=== PATIENT | male | born 1945 | race Caucasian/White ===

== ENCOUNTER 2018-04-29 05:03 | Emergency (ER) | payer MEDICARE ==
[2018-04-29 05:29] LABS: BASOPHILS # (AUTO) 0.1 10^3/uL (0.0-0.1); BASOPHILS % (AUTO) 1.1 %; EOSINOPHILS # (AUTO) 0.3 10^3/uL (0.0-0.7); EOSINOPHILS % (AUTO) 3.4 %; HGB - HEMOGLOBIN 15.4 g/dL (14.0-18.0); LYMPHOCYTES # (AUTO) 2.2 10^3/uL (1.5-3.5); LYMPHOCYTES % (AUTO) 23.9 %; MEAN CORPUSCULAR HEMOGLOBIN 27.3 pg (27.0-31.0); MEAN CORPUSCULAR HGB CONC 32.7 g/dL (32.0-36.0); MEAN CORPUSCULAR VOLUME 83.6 fL (80.0-94.0); MEAN PLATELET VOLUME 7.8 fL (7.4-11.4); MONOCYTES # (AUTO) 0.7 10^3/uL (0.0-1.0); MONOCYTES % (AUTO) 8.2 %; NEUTROPHILS # (AUTO) 5.8 10^3/uL (1.5-6.6); NEUTROPHILS % (AUTO) 63.4 %; PLT - PLATELET COUNT 244 10^3/uL (130-450); RED BLOOD COUNT 5.63 10^6/uL (4.70-6.10); RED CELL DISTRIBUTION WIDTH 14.2 % (12.0-15.0); WHITE BLOOD COUNT 9.2 x10^3/uL (4.8-10.8)
[2018-04-29] MEDS ORDERED: METOPROLOL 5 MG/5 ML VIAL IVP STA ×3 (05:37→05:54)
[2018-04-29 05:41] LABS: ALBUMIN 4.2 g/dL (3.2-5.5); ALBUMIN/GLOBULIN RATIO 1.2 (1.0-2.2); BILIRUBIN,TOTAL 0.4 mg/dL (0.2-1.0); CALCIUM 9.4 mg/dL (8.5-10.3); CREATININE 0.9 mg/dL (0.6-1.2); TOTAL PROTEIN 7.6 g/dL (6.7-8.2)
[2018-04-29] MEDS ORDERED: SODIUM CHLORIDE 0.9% 1,000 ML IV ONE (05:53)
--- NOTE | 2018-04-29 06:05 | ED Physician Documentation ---
PD HPI CHEST PAIN - Stated complaint Stated Complaint: HIGH BLOOD PRESSURE, CHEST DISCOMFORT - Chief complaint Chief Complaint: Cardiac - History obtained from History obtained from: Patient, EMS - History of Present Illness Timing - onset: Today Timing - onset during: Rest Timing - duration: Hours Timing - details: Gradual onset, Still present Location: Substernal Radiation: Neck Improved by: Rest Associated symptoms: No: Shortness of air, Diaphoresis, Nausea, Vomiting, Feeling faint / dizzy, General Weakness, Palpitations, Cough Similar symptoms before: Diagnosis (hypertensive crisis) Recently seen: Not recently seen - Additional information Additional information: 72-year-old male with a history of hypertension and atrial fibrillation awoke this morning with his fingers being cold and clammy. He checked his blood pressure was markedly elevated he has had this happen to him previously with marked elevation in his blood pressure. He is come to the emergency department now by ambulance. With a diastolic over 120. Review of Systems Constitutional: denies: Fever, Chills, Myalgias, Fatigue Eyes: denies: Decreased vision Ears: denies: Ear pain Nose: denies: Rhinorrhea / runny nose, Congestion Throat: denies: Sore throat Cardiac: denies: Chest pain / pressure, Palpitations Respiratory: denies: Dyspnea, Cough GI: denies: Abdominal Pain, Nausea, Vomiting : denies: Dysuria, Frequency Skin: denies: Rash Musculoskeletal: denies: Neck pain, Back pain, Extremity pain Neurologic: denies: Generalized weakness, Focal weakness, Numbness PD PAST MEDICAL HISTORY - Past Medical History Past Medical History: Yes Cardiovascular: Hypertension, Atrial fibrillation Musculoskeletal: Osteoarthritis, Chronic back pain - Past Surgical History Past Surgical History: Yes - Present Medications Home Medications: Ambulatory Orders Medication Instructions Recorded Confirmed Omeprazole Magnesium [Prilosec] 40 mg PO DAILY 04/29/18 04/29/18 RX: Acetaminophen 1 tab PO Q4HR PRN 04/29/18 04/29/18 RX: Gabapentin 600 mg PO TID 04/29/18 04/29/18 RX: Lisinopril 1 tab PO BID 04/29/18 04/29/18 RX: Metoprolol Tartrate 25 mg PO BID 04/29/18 04/29/18 RX: Nortriptyline HCl 50 mg PO QPM 04/29/18 04/29/18 RX: Oxycodone HCl 10 mg PO Q3HR PRN 04/29/18 04/29/18 RX: Promethazine [Phenergan] 1 tab PO Q4HR PRN 04/29/18 04/29/18 RX: Trazodone HCl 1 tab PO QPM PRN 04/29/18 04/29/18 RX: tiZANidine [Zanaflex] 0.5 tab PO DAILY PRN 04/29/18 04/29/18 Rivaroxaban [Xarelto] 1 tab PO DAILY 04/29/18 04/29/18 - Allergies Allergies/Adverse Reactions: Allergies Allergy/AdvReac Type Severity Reaction Status Date / Time Iodine and Iodide Containing Allergy Anaphylaxis Verified 04/29/18 06:14 Produc - Social History Does the pt smoke?: No Smoking Status: Never smoker Does the pt drink ETOH?: No Does the pt have substance abuse?: No - Immunizations Immunizations are current?: No - POLST Patient has POLST: No PD ED PE NORMAL - Vitals Vital signs reviewed: Yes (marked hypertension) - General General: Alert and oriented X 3, No acute distress, Well developed/nourished - HEENT HEENT: Atraumatic, PERRL, EOMI, Ears normal, Pharynx benign, Other (dry mucous membranes ) - Neck Neck: Supple, no meningeal sign, No bony TTP - Cardiac Cardiac: No murmur, Other (irregularly irregular ) - Respiratory Respiratory: No respiratory distress, Clear bilaterally - Abdomen Abdomen: Soft, Non tender - Back Back: No CVA TTP, No spinal TTP - Derm Derm: Normal color, Warm and dry, No rash - Extremities Extremities: No deformity, No edema - Neuro Neuro: Alert and oriented X 3, 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, No motor deficit, No sensory deficit, Normal speech Eye Opening: Spontaneous Motor: Obeys Commands Verbal: Oriented GCS Score: 15 - Psych Psych: Normal mood, Normal affect Results - Vitals Vitals: Vital Signs - 24 hr 04/29/18 04/29/18 04/29/18 05:03 05:30 05:58 Temperature 36.0 C L Heart Rate 99 86 90 Respiratory 22 18 23 Rate Blood Pressure 189/137 H 174/124 H 173/122 H Blood Pressure 175/118 H [Left] Blood Pressure 172/124 H [Right] O2 Saturation 96 98 95 1204/29/18 04/29/18 06:02 06:10 06:20 Temperature Heart Rate 82 79 79 Respiratory 15 16 16 Rate Blood Pressure 171/160 H 175/118 H 177/133 H Blood Pressure [Left] Blood Pressure [Right] O2 Saturation 95 96 94 04/29/18 04/29/18 04/29/18 06:33 06:43 06:55 Temperature Heart Rate 76 69 71 Respiratory 24 16 14 Rate Blood Pressure 176/104 H 151/118 H 177/116 H Blood Pressure [Left] Blood Pressure [Right] O2 Saturation 100 97 97 Oxygen O2 Source Room air - EKG (time done) 0510 Rate: No: Rate (enter#) (88) Rhythm: Atrial fibrillation Ischemia: Normal ST segments Compare to prior EKG: Old EKG unavailable Computer interpretation: Agree with computer - Labs Labs: Laboratory Tests 04/29/18 04/29/18 04/29/18 05:23 05:23 05:23 WBC 9.2 RBC 5.63 Hgb 15.4 Hct 47.1 MCV 83.6 MCH 27.3 MCHC 32.7 RDW 14.2 Plt Count 244 MPV 7.8 Neut # (Auto) 5.8 Lymph # (Auto) 2.2 [place] # (Auto) 0.7 Eos # (Auto) 0.3 Baso # (Auto) 0.1 Absolute Nucleated RBC 0.00 Nucleated RBC % 0.1 Sodium 138 Potassium 3.7 Chloride 98 L Carbon Dioxide 31 Anion Gap 9.0 BUN 17 Creatinine 0.9 Estimated GFR (MDRD) 82 L Glucose 154 H Calcium 9.4 Total Bilirubin 0.4 AST 24 ALT 21 Alkaline Phosphatase 78 Troponin I < 0.04 Total Protein 7.6 Albumin 4.2 Globulin 3.4 Albumin/Globulin Ratio 1.2 Lipase 34 Procedures - IVC sono (time) 0530 Bedside IVC sono: IVC measures (cm) (0.89), IVC collapsed c insp (cm) (complete), Dehydration (est 2 liter deficit) PD MEDICAL DECISION MAKING - ED course Complexity details: reviewed results, re-evaluated patient, considered differential, d/w patient ED course: 72 y/o male with a hypertensive crisis denies missing a dose of his metoprolol and denies any excessive salt load. He is found to be dehydrated on interrogation of the IVC and he is administered IV saline and metoprolol. He is then administered clonidine 0.2mg and he has some improvement. The patient has urgent hypertension and we will increase his metoprolol to 50mg bid and have him follow up this week with a new primary. Departure - Departure Disposition: 01 Home, Self Care Clinical Impression: Hypertensive urgency, malignant Condition: Stable Instructions: ED Hypertension Conf Out Of Control Follow-[facility]Provider Group[facility] Comments: Today you have hypertensive urgency and it is recommended that we lower your blood pressure over the next week. We have given you some medication today to lower your blood pressure today. Increase your dose of metoprolol to 50 mg twice per day and start that today. Expect some improvement in your blood pressure daily and follow-up with the primary care doctors this week. Discharge Date/Time: 04/29/18 07:42
[2018-04-29] MEDS ORDERED: cloNIDine 0.1 MG TABLET PO STA ×2 (06:22→06:26)
--- NOTE | 2018-04-29 06:37 | XRAY Report ---
Reason: chest pain Procedure Date: 04/29/2018 Accession Number: [id number] / [id number] Procedure: XR - Chest 1 View X-Ray CPT Code: 46079 FULL RESULT: EXAM: CHEST RADIOGRAPHY EXAM DATE: 04/29/2018 06:24 AM. CLINICAL HISTORY: Chest pain. COMPARISON: None. TECHNIQUE: 1 view. FINDINGS: Lungs/Pleura: No focal opacities evident. No pleural effusion. No pneumothorax. Mediastinum: Within exam limitations, the cardiomediastinal contour is normal. Other: Right hemidiaphragm elevation. IMPRESSION: No acute process seen in the chest. RADIA
[2018-04-29 06:56] VITALS: BP 177/116
== END 2018-04-29 07:42 | disposition home or self-care (01) ==
LOC: EDBD → ED 05:03
DX: I16.0 Hypertensive urgency (principal); E86.0 Dehydration; I10 Essential (primary) hypertension; I48.91 Unspecified atrial fibrillation; Z79.01 Long term (current) use of anticoagulants
CPT/HCPCS: 36415; 71045; 80053; 83690; 84484; 85025; 93005; 96361; 96374; 96376; 99284; 99285; A9270

== ENCOUNTER 2018-05-02 14:03 | Emergency (ER) | payer MEDICARE ==
[2018-05-02 14:40] LABS: BASOPHILS # (AUTO) 0.1 10^3/uL (0.0-0.1); BASOPHILS % (AUTO) 0.9 %; EOSINOPHILS # (AUTO) 0.1 10^3/uL (0.0-0.7); HGB - HEMOGLOBIN 16.4 g/dL (14.0-18.0); LYMPHOCYTES # (AUTO) 1.9 10^3/uL (1.5-3.5); LYMPHOCYTES % (AUTO) 16.9 %; MEAN CORPUSCULAR HEMOGLOBIN 27.3 pg (27.0-31.0); MEAN CORPUSCULAR HGB CONC 32.9 g/dL (32.0-36.0); MEAN CORPUSCULAR VOLUME 82.9 fL (80.0-94.0); MEAN PLATELET VOLUME 8.2 fL (7.4-11.4); MONOCYTES # (AUTO) 0.9 10^3/uL (0.0-1.0); MONOCYTES % (AUTO) 8.2 %; NEUTROPHILS # (AUTO) 8.1 10^3/uL (1.5-6.6); PLT - PLATELET COUNT 291 10^3/uL (130-450); RED BLOOD COUNT 6.02 10^6/uL (4.70-6.10); RED CELL DISTRIBUTION WIDTH 14.2 % (12.0-15.0); WHITE BLOOD COUNT 11.1 x10^3/uL (4.8-10.8)
[2018-05-02 14:53] LABS: ALBUMIN 4.9 g/dL (3.2-5.5); ALBUMIN/GLOBULIN RATIO 1.3 (1.0-2.2); BILIRUBIN,TOTAL 0.7 mg/dL (0.2-1.0); CALCIUM 9.8 mg/dL (8.5-10.3); CREATININE 0.9 mg/dL (0.6-1.2); TOTAL PROTEIN 8.7 g/dL (6.7-8.2)
[2018-05-02] MEDS ORDERED: SODIUM CHLORIDE 0.9% 500 ML IV ONE (14:58)
[2018-05-02 16:12] LABS: BILIRUBIN,URINE NEGATIVE (NEGATIVE); GLUCOSE, URINE (UA) NEGATIVE (NEGATIVE); KETONES,URINE (UA) NEGATIVE (NEGATIVE); LEUKOCYTE ESTERASE, URINE TRACE (NEGATIVE); NITRITE,URINE NEGATIVE (NEGATIVE); OCCULT BLOOD,URINE LARGE (NEGATIVE); PROTEIN,URINE 30 mg/dL (NEGATIVE); UROBILINOGEN,URINE 0.2 (NORMAL) E.U./dL (NORMAL)
[2018-05-02 16:14] LABS: CLARITY,URINE CLOUDY (CLEAR)
[2018-05-02 16:18] LABS: BACTERIA,URINE None Seen /HPF (None Seen); RBC,URINE TNTC /HPF (0-5); SQUAMOUS EPITHELIAL CELL,UR NONE SEEN (<= Few)
--- NOTE | 2018-05-02 16:50 | ED Physician Documentation ---
PD HPI MALE - Stated complaint Stated Complaint: MALE - Chief complaint Chief Complaint: Abd Pain - History obtained from History obtained from: Patient, Family - History of Present Illness Timing - onset: Today (3) Timing - duration: Days (3) Timing - details: Gradual onset Pain level max: 5 Pain level now: 4 Associated symptoms: Hematuria, Abdominal pain (Patient states he has chronic left-sided abdominal pain for the past year and a half. No change). No: Dysuria, Urinary frequency, Unable to urinate, Discharge, Genital sore / lesion, Testiclar pain, Scrotal swelling, Indwelling catheter, Herrera problem Similar symptoms before: Has not had sx before Recently seen: Not recently seen - Additional information Additional information: pt on xarelto Review of Systems Constitutional: denies: Fever, Chills Ears: denies: Ear pain Nose: denies: Rhinorrhea / runny nose, Congestion Throat: denies: Sore throat Cardiac: denies: Chest pain / pressure Respiratory: denies: Cough Skin: denies: Rash Musculoskeletal: denies: Neck pain, Back pain Neurologic: denies: Headache PD PAST MEDICAL HISTORY - Past Medical History Cardiovascular: Hypertension, Atrial fibrillation GI: GERD Musculoskeletal: Osteoarthritis, Chronic back pain - Past Surgical History Past Surgical History: Yes - Present Medications Home Medications: Ambulatory Orders Medication Instructions Recorded Confirmed Acetaminophen 1 tab PO Q4HR PRN 04/29/18 04/29/18 Gabapentin 600 mg PO TID 04/29/18 04/29/18 Lisinopril 1 tab PO BID 04/29/18 04/29/18 Metoprolol Tartrate 25 mg PO BID 04/29/18 04/29/18 Nortriptyline HCl 50 mg PO QPM 04/29/18 04/29/18 Omeprazole Magnesium [Prilosec] 40 mg PO DAILY 04/29/18 04/29/18 Oxycodone HCl 10 mg PO Q3HR PRN 04/29/18 04/29/18 Rivaroxaban [Xarelto] 1 tab PO DAILY 04/29/18 04/29/18 Trazodone HCl 1 tab PO QPM PRN 04/29/18 04/29/18 tiZANidine [Zanaflex] 0.5 tab PO DAILY PRN 04/29/18 04/29/18 - Allergies Allergies/Adverse Reactions: Allergies Allergy/AdvReac Type Severity Reaction Status Date / Time Iodine and Iodide Containing Allergy Anaphylaxis Verified 05/02/18 14:09 Produc - Social History Does the pt smoke?: No Smoking Status: Never smoker Does the pt drink ETOH?: No Does the pt have substance abuse?: No - Immunizations Immunizations are current?: No - POLST Patient has POLST: No PD ED PE NORMAL - Vitals Vital signs reviewed: Yes - General General: Alert and oriented X 3, No acute distress - HEENT HEENT: Moist mucous membranes - Neck Neck: Supple, no meningeal sign - Cardiac Cardiac: RRR, Strong equal pulses - Respiratory Respiratory: No respiratory distress, Clear bilaterally - Abdomen Abdomen: Soft, Non tender, Non distended - Back Back: No CVA TTP, No spinal TTP - Derm Derm: Warm and dry - Extremities Extremities: No edema - Neuro Neuro: Alert and oriented X 3 Results - Vitals Vitals: Vital Signs - 24 hr 05/02/18 05/02/18 14:05 17:24 Temperature 36.9 C 36.9 C Heart Rate 91 92 Respiratory 16 16 Rate Blood Pressure 172/113 H 169/110 H O2 Saturation 100 100 Oxygen O2 Source Room air - Labs Labs: Laboratory Tests 05/02/18 05/02/18 05/02/18 14:25 14:25 14:25 WBC 11.1 H RBC 6.02 Hgb 16.4 Hct 49.9 MCV 82.9 MCH 27.3 MCHC 32.9 RDW 14.2 Plt Count 291 MPV 8.2 Neut # (Auto) 8.1 H Lymph # (Auto) 1.9 [place] # (Auto) 0.9 Eos # (Auto) 0.1 Baso # (Auto) 0.1 Absolute Nucleated RBC 0.00 Nucleated RBC % 0.0 Sodium 141 Potassium 3.9 Chloride 100 L Carbon Dioxide 31 Anion Gap 10.0 BUN 14 Creatinine 0.9 Estimated GFR (MDRD) 82 L Glucose 119 H Calcium 9.8 Total Bilirubin 0.7 AST 34 ALT 24 Alkaline Phosphatase 78 Total Creatine Kinase 343 H Total Protein 8.7 H Albumin 4.9 Globulin 3.8 Albumin/Globulin Ratio 1.3 Lipase 38 Urine Color Urine Clarity Urine pH Ur Specific [place] Urine Protein Urine Glucose (UA) Urine Ketones Urine Occult Blood Urine Nitrite Urine Bilirubin Urine Urobilinogen Ur Leukocyte Esterase Urine RBC Urine WBC Ur Squamous Epith Cells Urine Bacteria Ur Microscopic Review Urine Culture Comments 05/02/18 15:58 WBC RBC Hgb Hct MCV MCH MCHC RDW Plt Count MPV Neut # (Auto) Lymph # (Auto) [place] # (Auto) Eos # (Auto) Baso # (Auto) Absolute Nucleated RBC Nucleated RBC % Sodium Potassium Chloride Carbon Dioxide Anion Gap BUN Creatinine Estimated GFR (MDRD) Glucose Calcium Total Bilirubin AST ALT Alkaline Phosphatase Total Creatine Kinase Total Protein Albumin Globulin Albumin/Globulin Ratio Lipase Urine Color BROWN Urine Clarity CLOUDY Urine pH 7.0 Ur Specific [place] 1.025 Urine Protein 30 H Urine Glucose (UA) NEGATIVE Urine Ketones NEGATIVE Urine Occult Blood LARGE H Urine Nitrite NEGATIVE Urine Bilirubin NEGATIVE Urine Urobilinogen 0.2 (NORMAL) Ur Leukocyte Esterase TRACE H Urine RBC TNTC H Urine WBC 0-3 Ur Squamous Epith Cells NONE SEEN Urine Bacteria None Seen Ur Microscopic Review INDICATED Urine Culture Comments INDICATED PD MEDICAL DECISION MAKING - ED course Complexity details: considered differential, d/w patient, d/w family ED course: Patient is a 72-year-old male with painless hematuria today. He is on Xarelto and it may be a side effect from this. We will have him hold this for the next few days. No evidence of UTI. If he does not improve, would likely need a urology referral for cystoscopy or further imaging with his doctor. Patient and family counseled regarding signs and symptoms for which I believe and urgent re-evaluation would be necessary. Patient with good understanding of and agreement to plan and is comfortable going home at this time This document was made in part using voice recognition software. While efforts are made to proofread this document, sound alike and grammatical errors may occur. Departure - Departure Disposition: 01 Home, Self Care Clinical Impression: Hematuria Qualifiers: Hematuria type: gross Qualified Code(s): R31.0 - Gross hematuria Condition: Good Instructions: ED Hematuria Follow-Up: your,doctor in 4 days for recheck [Other] Comments: Hold your xarelto for 3 days to see if this clears your urine. Follow up with your doctor for further care. Discharge Date/Time: 05/02/18 17:26
[2018-05-02 17:25] VITALS: BP 169/110
== END 2018-05-02 17:26 | disposition home or self-care (01) ==
LOC: ED 14:03
DX: R31.0 Gross hematuria (principal); I10 Essential (primary) hypertension; I48.91 Unspecified atrial fibrillation; Z79.01 Long term (current) use of anticoagulants
CPT/HCPCS: 36415; 80053; 81001; 81003; 82550; 83690; 85025; 87077; 87086; 87181; 96360; 99283

== ENCOUNTER 2018-07-05 12:58 | Outpatient (CLI) | payer MEDICARE ==
[2018-07-05] MEDS ORDERED: IOVERSOL 320 50 ML VIAL ONE (13:13)
[2018-07-05] MEDS ORDERED: IOVERSOL 320 100 ML VIAL IVP ONE (13:13)
[2018-07-05 13:29] LABS: CREATININE 0.9 mg/dL (0.6-1.2)
== END 2018-07-05 12:59 | disposition home or self-care (01) ==
LOC: DI 12:58
PROVIDERS: ATTEND Specialist
DX: R10.30 Lower abdominal pain, unspecified (principal)
CPT/HCPCS: 36415; 82565

== ENCOUNTER 2018-07-06 17:55 | Emergency (ER) | payer MEDICARE ==
[2018-07-06] MEDS ORDERED: IOVERSOL 320 100 ML VIAL IVP ONE ×3 (17:56→21:56)
[2018-07-06] MEDS ORDERED: diphenhydrAMINE INJ 50 MG/ML VIAL IVP STA (18:11)
--- NOTE | 2018-07-06 18:14 | ED Physician Documentation ---
PD HPI ABD PAIN - Stated complaint Stated Complaint: HBP/PURPLE FEET/BILAT NUMB/NOT EATING - History obtained from History obtained from: Patient, Family - History of Present Illness Timing - onset: Other (For the last few weeks he has had protuberant abdomen with abdominal pain and increasing abdominal girth associated with poor appetite and weight gain. He does not drink alcohol. Note made that he had painless hematuria on a visit in April, he has not had hematuria again since. He saw his primary care physician who ordered a CT but because of some confusion about whether or not he might be allergic to iodine it was not done yesterday. The reaction to iodine was in 1985 and was with a spinal injection, not IV contrast.) Review of Systems Ten Systems: 10 systems reviewed and negative Constitutional: reports: Fatigue. denies: Fever, Chills Cardiac: denies: Chest pain / pressure, Palpitations GI: reports: Abdominal Pain, Nausea. denies: Constipation, Diarrhea : denies: Dysuria, Frequency PD PAST MEDICAL HISTORY - Past Medical History Cardiovascular: Hypertension, Atrial fibrillation GI: GERD Musculoskeletal: Osteoarthritis, Chronic back pain - Past Surgical History Past Surgical History: Yes - Present Medications Home Medications: Ambulatory Orders Medication Instructions Recorded Confirmed Omeprazole Magnesium [Prilosec] 40 mg PO DAILY 04/29/18 07/06/18 RX: Acetaminophen 1 tab PO Q4HR PRN 04/29/18 04/29/18 RX: Gabapentin 600 mg PO TID 04/29/18 04/29/18 RX: Lisinopril 0.5 tab PO BID 04/29/18 07/06/18 RX: Metoprolol Tartrate 25 mg PO BID 04/29/18 07/06/18 RX: Nortriptyline HCl 50 mg PO QPM 04/29/18 04/29/18 RX: Oxycodone HCl 10 mg PO Q3HR PRN 04/29/18 07/06/18 RX: Trazodone HCl 1 tab PO QPM PRN 04/29/18 04/29/18 RX: tiZANidine [Zanaflex] 0.5 tab PO DAILY PRN 04/29/18 04/29/18 Rivaroxaban [Xarelto] 1 tab PO DAILY 04/29/18 07/06/18 Ondansetron Odt [Zofran] 4 mg TL Q6H PRN #10 tablet 07/06/18 - Allergies Allergies/Adverse Reactions: Allergies Allergy/AdvReac Type Severity Reaction Status Date / Time Iodine and Iodide Containing Allergy Anaphylaxis Verified 07/06/18 18:39 Produc - Social History Does the pt smoke?: No Smoking Status: Never smoker Does the pt drink ETOH?: No Does the pt have substance abuse?: No - Family History Family history: reports: Non contributory - Immunizations Immunizations are current?: No - POLST Patient has POLST: No PD ED PE NORMAL - Vitals Vital signs reviewed: Yes - General General: Alert and oriented X 3, No acute distress - HEENT HEENT: PERRL, EOMI - Neck Neck: Supple, no meningeal sign, No bony TTP - Cardiac Cardiac: RRR, No murmur - Respiratory Respiratory: No respiratory distress, Clear bilaterally - Abdomen Abdomen: Other (Protuberant abdomen which is tense and tympanitic to percussion with hyperactive bowel tones and only minimal diffuse tenderness.) - Back Back: No CVA TTP, No spinal TTP - Derm Derm: Normal color, Warm and dry - Extremities Extremities: No edema, No calf tenderness / cord, Other (cool feet but ok cap refill) - Neuro Neuro: Alert and oriented X 3, Normal speech Results - Vitals Vitals: Vital Signs - 24 hr 07/06/18 07/06/18 07/06/18 18:08 19:27 20:30 Temperature 36.4 C L Heart Rate 57 L 88 99 Respiratory 18 16 19 Rate Blood Pressure 160/108 H 156/108 H 132/92 H O2 Saturation 98 99 93 07/06/18 07/06/18 07/06/18 20:52 21:26 21:42 Temperature Heart Rate 97 98 106 H Respiratory 20 18 16 Rate Blood Pressure 128/92 H 141/95 H 133/108 H O2 Saturation 92 95 94 07/06/18 07/06/18 22:05 22:59 Temperature 36.4 C L Heart Rate 97 102 H Respiratory 17 20 Rate Blood Pressure 127/81 H 144/90 H O2 Saturation 100 95 Oxygen O2 Source Room air - EKG (time done) 1810 Rate: Rate (enter#) (89) Rhythm: Atrial fibrillation [place]: LAD QRS: Normal Ischemia: Non specific changes Computer interpretation: Agree with computer - Labs Labs: Laboratory Tests 07/06/18 07/06/1819 18:25 18:25 18:25 WBC 9.9 RBC 5.47 Hgb 14.7 Hct 46.2 MCV 84.4 MCH 26.9 L MCHC 31.9 L RDW 13.5 Plt Count 306 MPV 8.3 Neut # (Auto) 6.8 H Lymph # (Auto) 1.6 [place] # (Auto) 1.3 H Eos # (Auto) 0.0 Baso # (Auto) 0.1 Absolute Nucleated RBC 0.00 Nucleated RBC % 0.1 Sodium 134 L Potassium 4.2 Chloride 96 L Carbon Dioxide 28 Anion Gap 10.0 BUN 14 Creatinine 0.8 Estimated GFR (MDRD) 94 Glucose 110 H Calcium 9.6 Total Bilirubin 1.0 AST 177 H ALT 134 H Alkaline Phosphatase 145 H Troponin I < 0.04 Total Protein 6.8 Albumin 3.6 Globulin 3.2 Albumin/Globulin Ratio 1.1 Lipase 46 Fluid Source Fluid Color Fluid Clarity Fluid WBC Fluid RBC 07/06/18 21:45 WBC RBC Hgb Hct MCV MCH MCHC RDW Plt Count MPV Neut # (Auto) Lymph # (Auto) [place] # (Auto) Eos # (Auto) Baso # (Auto) Absolute Nucleated RBC Nucleated RBC % Sodium Potassium Chloride Carbon Dioxide Anion Gap BUN Creatinine Estimated GFR (MDRD) Glucose Calcium Total Bilirubin AST ALT Alkaline Phosphatase Troponin I Total Protein Albumin Globulin Albumin/Globulin Ratio Lipase Fluid Source PERITONEAL Fluid Color BLOODY Fluid Clarity BLOODY Fluid WBC 1313 Fluid RBC [id number] - Rads (name of study) CT A/P Radiology: EMP read contemporaneously (1. Right small pleural effusion and right lower lobe consolidative changes/atelectasis. 2. Multiple hepatic lesions most likely metastatic. Extensive peritoneal nodularity and moderate to large volume ascites ypically most likely representing peritoneal carcinomatosis. 3. Marked circumferential thickening and heterogeneity of the gallbladder which may be the etiology for the extensive disease throughout the abdomen and pelvis versus another focus of metastatic disease. 4. No definitive evidence for pancreatic or bowel lesion.) Procedures - Paracentesis Preparation: Consent obtained, Ultrasound guidance, Sterile prep and drape, Local anesthesia (6ml lido with epi) Location: RLQ Technique: Z-tract, Catheter over needle Fluid: Bloody, Sent for cell count, Sent for gram stain, Sent for culture, Volume - enter cc (3.5liters), Sent for cytology Aftercare: No complications PD MEDICAL DECISION MAKING - ED course ED course: This is a 72-year-old gentleman presents with ongoing abdominal symptoms and clinical ascites proven on CT with multiple liver metastases and a likely source of potentially a gallbladder primary. After informed consent of the ther apeutic and diagnostic paracentesis was done and sent for cytology and they will follow-up with their physician for results and oncology referral. Departure - Departure Disposition: 01 Home, Self Care Clinical Impression: Metastatic cancer, Malignant ascites Condition: Good Record reviewed to determine appropriate education?: Yes Instructions: ED Tumor [facility] Prescriptions: Ondansetron Odt [Zofran] 4 mg TL Q6H PRN #10 tablet PRN Reason: Nausea / Vomiting Comments: As discussed we are sending the fluid from your abdominal tap to a pathologist for review. Hopefully this will give you more clear diagnosis as to the primary cause of what is likely metastatic cancer. Follow-up with Dr. Kapadia for results, results should be done in approximately 3-5 days. Return for new or worsening symptoms. Discharge Date/Time: 07/06/18 22:59
[2018-07-06 18:39] LABS: BASOPHILS # (AUTO) 0.1 10^3/uL (0.0-0.1); BASOPHILS % (AUTO) 1.2 %; EOSINOPHILS % (AUTO) 0.4 %; HGB - HEMOGLOBIN 14.7 g/dL (14.0-18.0); LYMPHOCYTES # (AUTO) 1.6 10^3/uL (1.5-3.5); LYMPHOCYTES % (AUTO) 16.6 %; MEAN CORPUSCULAR HEMOGLOBIN 26.9 pg (27.0-31.0); MEAN CORPUSCULAR HGB CONC 31.9 g/dL (32.0-36.0); MEAN CORPUSCULAR VOLUME 84.4 fL (80.0-94.0); MEAN PLATELET VOLUME 8.3 fL (7.4-11.4); MONOCYTES # (AUTO) 1.3 10^3/uL (0.0-1.0); MONOCYTES % (AUTO) 12.7 %; NEUTROPHILS # (AUTO) 6.8 10^3/uL (1.5-6.6); NEUTROPHILS % (AUTO) 69.1 %; PLT - PLATELET COUNT 306 10^3/uL (130-450); RED BLOOD COUNT 5.47 10^6/uL (4.70-6.10); RED CELL DISTRIBUTION WIDTH 13.5 % (12.0-15.0); WHITE BLOOD COUNT 9.9 x10^3/uL (4.8-10.8)
[2018-07-06 18:50] LABS: ALBUMIN 3.6 g/dL (3.2-5.5); ALBUMIN/GLOBULIN RATIO 1.1 (1.0-2.2); CALCIUM 9.6 mg/dL (8.5-10.3); CREATININE 0.8 mg/dL (0.6-1.2); TOTAL PROTEIN 6.8 g/dL (6.7-8.2)
[2018-07-06] MEDS ORDERED: ONDANSETRON 4 MG/2 ML VIAL IVP STA ×2 (19:33→21:23)
--- NOTE | 2018-07-06 20:25 | XRAY Report ---
Reason: abd pain Procedure Date: 07/06/2018 Accession Number: [id number] / [id number] Procedure: XR - Chest 2 View X-Ray CPT Code: 61609 FULL RESULT: EXAM: CHEST RADIOGRAPHY EXAM DATE: 07/06/2018 07:54 PM. CLINICAL HISTORY: Swelling COMPARISON: CHEST 1 VIEW 04/29/2018 5:59 AM. TECHNIQUE: 2 views. FINDINGS: Lungs/Pleura: No focal opacities evident. No pleural effusion. No pneumothorax. Low expansion. Mildly elevated right hemidiaphragm. Mediastinum: Heart and mediastinal contours are unremarkable. Other: None. IMPRESSION: No acute cardiopulmonary abnormality. RADIA
--- NOTE | 2018-07-06 21:06 | CT Report ---
Reason: IV only, abd pain/swelling Procedure Date: 07/06/2018 Accession Number: [id number] / [id number] Procedure: CT - Abdomen/Pelvis W/ CPT Code: FULL RESULT: EXAM: CT ABDOMEN AND PELVIS EXAM DATE: 07/06/2018 08:33 PM. CLINICAL HISTORY: Abdominal pain for 3 weeks with bloating and weight gain. COMPARISONS: None. TECHNIQUE: Routine helical CT imaging was performed through the abdomen and pelvis. IV contrast: OPTIRAY 320 90mL. Enteric contrast: None. Reconstructions: Coronal and sagittal. In accordance with CT protocol optimization, one or more of the following dose reduction techniques were utilized for this exam: automated exposure control, adjustment of mA and/or KV based on patient size, or use of iterative reconstructive technique. FINDINGS: Lung Bases: Small right pleural effusion and right lower lobe opacity. Lingular opacity also present. Included portions of the heart are unremarkable. Trace pericardial effusion. Small hiatal hernia. Liver: Multiple heterogeneous hepatic lesions are seen, the largest measuring approximately 3 cm in segment 8/5. Patent portal vein. Gallbladder/Bile Ducts: Diffuse thickening and nodularity in the expected position of the gallbladder. No biliary ductal dilatation. Spleen: Normal. Pancreas: Pancreatic parenchymal volume loss. Adrenal Glands: Normal. Kidneys: Kidneys enhance symmetrically. Upper pole left renal cyst is seen measuring 5.7 cm. No hydronephrosis. Peritoneal Cavity/Bowel: Stomach is mildly distended and unremarkable. There is a moderate to large volume of intra-abdominal free fluid with marked peritoneal enhancement and extensive omental and mesenteric nodularity most extensively along the right abdomen. No small bowel dilatation or small bowel obstruction. High-density material within the colon may represent ingested material. No diverticulitis. Cecum is in the right mid abdomen. Enlarged heterogeneous aurelio hepatis lymph node seen measuring up to 3 cm. The appendix is well visualized and normal. Pelvic Organs: Pelvic free fluid. Peritoneal enhancement. Urinary bladder is mildly distended. Prostate calcifications are noted. No pelvic adenopathy. Vasculature: Vascular calcifications. No aneurysm. Bones: Degenerative changes of the lower thoracic and lumbar spine. Chronic anterior wedging of L1. Lumbar facet arthropathy. No acute osseous abnormalities. Degenerative changes of both hip joints. Other: None. IMPRESSION: 1. Right small pleural effusion and right lower lobe consolidative changes/atelectasis. 2. Multiple hepatic lesions most likely metastatic in origin. 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 3. Marked circumferential thickening and heterogeneity of the gallbladder which may be the etiology for the extensive disease throughout the abdomen and pelvis versus another focus of metastatic disease. 4. No definitive evidence for pancreatic or bowel lesion. [facility] The call report notification system was initiated by Dr. Aron Villasenor at 08:55 PM on 07/06/2018. The above findings were discussed with Cecilio Roldan by Dr. Aron Villasenor at 09:01 PM on 07/06/2018.
[2018-07-06] MEDS ORDERED: LIDOCAINE 1%-EPI 1:100000 30 ML MDV SUBQ STA (21:17)
[2018-07-06] MEDS ORDERED: ONDANSETRON ODT 4 MG Prepack 2 TL STA (22:36)
[2018-07-06 23:00] VITALS: BP 144/90
[2018-07-06 23:09] LABS: BF SOURCE PERITONEAL; CC,BF RBC 33458 /mm^3
[2018-07-07 00:07] LABS: BF COLOR BLOODY
--- NOTE | 2018-07-11 20:41 | ED Physician Documentation ---
ED Addendum - Addendum Addendum: 07/11/18 20:40 Pathology received today and consistent with pancreatic or hepatobiliary primary, given the findings on CT scan, likely a gallbladder primary for his metastatic cancer. This was discussed with the patient by phone and he already has a referral to an oncologist. I also spoke with Herman Hernández on-call for his primary care physician to close the loop.
== END 2018-07-06 22:59 | disposition home or self-care (01) ==
LOC: ED 17:55
DX: C78.7 Secondary malignant neoplasm of liver and intrahepatic bile duct (principal); R18.0 Malignant ascites; C80.1 Malignant (primary) neoplasm, unspecified; J90 Pleural effusion, not elsewhere classified; I48.91 Unspecified atrial fibrillation; I10 Essential (primary) hypertension
CPT/HCPCS: 36415; 49082; 71046; 74177; 80053; 83690; 84484; 85025; 87070; 87205; 89051; 93005; 96374; 96375; 99284; J1200; Q9967; 49083

== ENCOUNTER 2018-07-12 15:18 | Outpatient (CLI) | payer MEDICARE | END 2018-07-12 15:19 | disposition critical access hospital (66) | LOC: EMS 15:18 | PROVIDERS: ATTEND Surgery | DX: R10.84 Generalized abdominal pain (principal) | CPT/HCPCS: A0425; A0429 ==

== ENCOUNTER 2018-07-12 15:35 | Emergency (ER) | payer MEDICARE ==
[2018-07-12] MEDS ORDERED: MORPHINE 2 MG/ML CARPUJECT IVP STA (15:44)
[2018-07-12] MEDS ORDERED: ONDANSETRON 4 MG/2 ML VIAL IVP STA (15:44)
--- NOTE | 2018-07-12 15:55 | ED Physician Documentation ---
History of Present Illness - Stated complaint Stated Complaint: ABD PX - Chief complaint Chief Complaint: Abd Pain - Additonal information Additional information: 72-year-old male with a recent diagnosis of metastatic cancer probably from an upper GI source returns to the emergency department with ongoing abdominal pain. The patient was seen recently in the emergency department and had a thorough workup and is pending oncology evaluation on August 01, 2018. The patient currently resides in a long term and has been having pain that is worsening and the patient has been unable to manage the pain in the long term. No reports of fevers, the pain is the same pain is been experiencing just worsening. No vomiting or blood in the stools. No other new or different symptoms. Symptoms are described as severe Review of Systems Constitutional: reports: Fatigue. denies: Fever Eyes: denies: Discharge Ears: denies: Loss of hearing, Ear pain Nose: denies: Congestion Throat: denies: Sore throat Cardiac: denies: Chest pain / pressure Respiratory: denies: Cough GI: reports: Abdominal Pain : denies: Dysuria Skin: denies: Rash Musculoskeletal: denies: Neck pain Neurologic: reports: Generalized weakness. denies: Focal weakness, Headache Immunocompromised: denies: Chemotherapy PD PAST MEDICAL HISTORY - Past Medical History Cardiovascular: Hypertension, Atrial fibrillation GI: GERD Musculoskeletal: Osteoarthritis, Chronic back pain - Past Surgical History Past Surgical History: Yes - Present Medications Home Medications: Ambulatory Orders Medication Instructions Recorded Confirmed Acetaminophen 1 tab PO Q4HR PRN 04/29/18 04/29/18 Gabapentin 600 mg PO TID 04/29/18 04/29/18 Lisinopril 0.5 tab PO BID 04/29/18 07/06/18 Metoprolol Tartrate 25 mg PO BID 04/29/18 07/06/18 Nortriptyline HCl 50 mg PO QPM 04/29/18 04/29/18 Omeprazole Magnesium [Prilosec] 40 mg PO DAILY 04/29/18 07/06/18 Oxycodone HCl 10 mg PO Q3HR PRN 04/29/18 07/06/18 Rivaroxaban [Xarelto] 1 tab PO DAILY 04/29/18 07/06/18 Trazodone HCl 1 tab PO QPM PRN 04/29/18 04/29/18 tiZANidine [Zanaflex] 0.5 tab PO DAILY PRN 04/29/18 04/29/18 Ondansetron Odt [Zofran] 4 mg TL Q6H PRN #10 tablet 07/06/18 - Allergies Allergies/Adverse Reactions: Allergies Allergy/AdvReac Type Severity Reaction Status Date / Time Iodine and Iodide Containing Allergy Anaphylaxis Verified 07/12/18 15:44 Produc - Social History Does the pt smoke?: No Smoking Status: Never smoker Does the pt drink ETOH?: No Does the pt have substance abuse?: No - Immunizations Immunizations are current?: No - POLST Patient has POLST: No PD ED PE NORMAL - General General: Alert and oriented X 3. No: No acute distress (The patient appears quite uncomfortable) - HEENT HEENT: Atraumatic, PERRL, EOMI, Ears normal - Neck Neck: Supple, no meningeal sign - Cardiac Cardiac: RRR, Strong equal pulses - Respiratory Respiratory: No respiratory distress, Clear bilaterally - Abdomen Abdomen: Soft, Non distended. No: Non tender (Diffuse abdominal tenderness, no rebound or peritoneal signs) - Derm Derm: Normal color - Extremities Extremities: No deformity, Normal ROM s pain, No edema - Neuro Neuro: Alert and oriented X 3, track grinder 2-12 intact, Normal speech - Psych Psych: Normal affect Results - Vitals Vitals: Vital Signs - 24 hr 07/12/18 07/12/18 07/12/18 15:38 16:12 16:19 Temperature 36.2 C L Heart Rate 117 H 109 H 102 H Respiratory 20 19 16 Rate Blood Pressure 134/86 H 113/84 H 113/84 H O2 Saturation 96 86 L 100 07/12/18 07/12/18 18:51 19:55 Temperature Heart Rate 106 H 102 H Respiratory 14 14 Rate Blood Pressure 109/42 L 115/83 H O2 Saturation 95 98 Oxygen O2 Source Room air Oxygen Flow Rate 2 - Labs Labs: Laboratory Tests 07/12/18 07/12/18 07/12/18 16:01 16:01 16:01 WBC 13.3 H RBC 5.90 Hgb 16.4 Hct 50.0 MCV 84.9 MCH 27.8 MCHC 32.7 RDW 13.7 Plt Count 210 MPV 7.9 Neut # (Auto) Not Reportable Lymph # (Auto) Not Reportable [place] # (Auto) Not Reportable Eos # (Auto) Not Reportable Baso # (Auto) Not Reportable Absolute Nucleated RBC Not Reportable Total Counted 100 Band Neuts % (Manual) 0 Abnorm Lymph % (Manual) 0 Nucleated RBC % Not Reportable Neutrophils # (Manual) 10.2 H Lymphocytes # (Manual) 1.6 Monocytes # (Manual) 1.3 H Eosinophils # (Manual) 0.1 Basophils # (Manual) 0.0 Differential Comment MANUAL DIFFERENTIAL Manual Slide Review Indicated WBC Morphology NORMAL APPEARANCE Platelet Estimate NORMAL (130-450,000) Platelet Morphology NORMAL APPEARANCE RBC Morph Micro Appear NORMAL APPEARANCE PT 13.7 H INR 1.2 Sodium 137 Potassium 4.2 Chloride 99 L Carbon Dioxide 29 Anion Gap 9.0 BUN 22 H Creatinine 0.9 Estimated GFR (MDRD) 82 L Glucose 135 H Lactic Acid Calcium 8.9 Total Bilirubin 0.9 AST 115 H ALT 95 H Alkaline Phosphatase 196 H Total Protein 6.8 Albumin 3.4 Globulin 3.4 Albumin/Globulin Ratio 1.0 Lipase 32 07/12/18 16:58 WBC RBC Hgb Hct MCV MCH MCHC RDW Plt Count MPV Neut # (Auto) Lymph # (Auto) [place] # (Auto) Eos # (Auto) Baso # (Auto) Absolute Nucleated RBC Total Counted Band Neuts % (Manual) Abnorm Lymph % (Manual) Nucleated RBC % Neutrophils # (Manual) Lymphocytes # (Manual) Monocytes # (Manual) Eosinophils # (Manual) Basophils # (Manual) Differential Comment Manual Slide Review WBC Morphology Platelet Estimate Platelet Morphology RBC Morph Micro Appear PT INR Sodium Potassium Chloride Carbon Dioxide Anion Gap BUN Creatinine Estimated GFR (MDRD) Glucose Lactic Acid 1.9 Calcium Total Bilirubin AST ALT Alkaline Phosphatase Total Protein Albumin Globulin Albumin/Globulin Ratio Lipase PD MEDICAL DECISION MAKING - ED course ED course: The patient had a CT scan just several days ago which showed metastatic disease, the patient had a paracentesis at that time and the pathology shows probable upper GI metastases. The patient is not scheduled to see oncology for several weeks and his pain is worsening and not controlled at his normal facility. Currently, the patient's abdomen is soft and there is no clinical signs to suggest Spontaneous bacterial peritonitis and I think the patient requires either a therapeutic paracentesis or diagnostic paracentesis. Since the patient's condition is worsening and his pain is not controlled I think that he will require transfer to a higher level of care for further workup and evaluation by oncology and possible therapeutic interventions as they see fit. I discussed the case with oncology at [facility] and the hospital service at [facility] Dr. Amaya who agree to transfer. The patient agrees to the plan as well. The patient is stable for transfer Departure - Departure Disposition: 02 Transfer Acute Care Hosp Clinical Impression: Metastatic cancer, Intractable abdominal pain Ascites Qualifiers: Ascites type: malignant Qualified Code(s): R18.0 - Malignant ascites
[2018-07-12 16:14] LABS: BASOPHILS % (AUTO) 0.9 %; EOSINOPHILS % (AUTO) 0.5 %; HGB - HEMOGLOBIN 16.4 g/dL (14.0-18.0); LYMPHOCYTES % (AUTO) 12.3 %; MEAN CORPUSCULAR HEMOGLOBIN 27.8 pg (27.0-31.0); MEAN CORPUSCULAR HGB CONC 32.7 g/dL (32.0-36.0); MEAN CORPUSCULAR VOLUME 84.9 fL (80.0-94.0); MEAN PLATELET VOLUME 7.9 fL (7.4-11.4); MONOCYTES % (AUTO) 13.1 %; NEUTROPHILS % (AUTO) 73.2 %; PLT - PLATELET COUNT 210 10^3/uL (130-450); RED CELL DISTRIBUTION WIDTH 13.7 % (12.0-15.0); WHITE BLOOD COUNT 13.3 x10^3/uL (4.8-10.8)
[2018-07-12 16:20] LABS: ABNORMAL LYMPHS % (MANUAL) 0 %; BAND NEUTROPHILS % (MANUAL) 0 %
[2018-07-12 16:22] LABS: INR 1.2 (0.8-1.2); PT - PROTHROMBIN TIME 13.7 secs (9.9-12.6)
[2018-07-12 16:27] LABS: ALBUMIN 3.4 g/dL (3.2-5.5); BILIRUBIN,TOTAL 0.9 mg/dL (0.2-1.0); CALCIUM 8.9 mg/dL (8.5-10.3); CREATININE 0.9 mg/dL (0.6-1.2); TOTAL PROTEIN 6.8 g/dL (6.7-8.2)
[2018-07-12 16:34] LABS: DIFFERENTIAL COMMENT MANUAL DIFFERENTIAL; EOSINOPHILS # (MANUAL) 0.1 10^3/uL (0-0.7); LYMPHOCYTES # (MANUAL) 1.6 10^3/uL (1.5-3.5); LYMPHOCYTES % (MANUAL) 12 %; MONOCYTES # (MANUAL) 1.3 10^3/uL (0.0-1.0); NEUTROPHILS # (MANUAL) 10.2 10^3/uL (1.5-6.6); NEUTROPHILS % (MANUAL) 77 %; PLATELET ESTIMATE, MANUAL NORMAL (130-450,000) (NORMAL); PLATELET MORPHOLOGY NORMAL APPEARANCE (NORMAL); RBC MORPHOLOGY (MULTIPLE) NORMAL APPEARANCE (NORMAL)
[2018-07-12] MEDS ORDERED: HYDROmorphone 1 MG/ML CARPUJECT IVP STA ×4 (17:41→21:06)
[2018-07-12] MEDS ORDERED: SODIUM CHLORIDE 0.9% 1,000 ML IV ONE (19:09)
[2018-07-12] MEDS ORDERED: oxyCODONE 5 MG TABLET PO STA (21:06)
[2018-07-12 21:10] VITALS: BP 119/74
== END 2018-07-12 21:36 | disposition short-term general hospital (02) ==
LOC: EDBD → EDUNIT# → ED 15:35
DX: R10.9 Unspecified abdominal pain (principal); C80.1 Malignant (primary) neoplasm, unspecified; R18.0 Malignant ascites; I10 Essential (primary) hypertension
CPT/HCPCS: 36415; 80053; 83605; 83690; 85025; 85610; 87040; 96374; 96375; 96376; 99284; 99285; A9270; J1170